=== PATIENT | female | born 1975 | race Caucasian/White ===

== ENCOUNTER 2019-10-10 10:25 | Day surgery (SDC) | payer OTHER, SELFPAY ==
[2019-10-04 11:55] LABS: ALBUMIN 3.2 g/dL (3.4-5.0); ANION GAP 13.5 (8-16); CARBON DIOXIDE 28.9 mmol/L (21-32); CREATININE 0.8 mg/dL (0.6-1.3); POTASSIUM 3.4 mmol/L (3.5-5.1); TOTAL BILIRUBIN 0.2 mg/dL (0.0-1.0)
[2019-10-04 11:58] LABS: BASOPHILS # (AUTO) 0.1 K/uL (0.00-0.22); BASOPHILS % (AUTO) 0.6 % (0.0-2.0); EOSINOPHILS # (AUTO) 0.2 K/uL (0-0.4); EOSINOPHILS % (AUTO) 2.6 % (0.0-4.0); HEMATOCRIT 40.1 % (36-48); LYMPHOCYTES # (AUTO) 2.1 K/uL (2.5-16.5); MEAN CORPUSCULAR HEMOGLOBIN 27 pg (27-31); MEAN CORPUSCULAR HGB CONC 32 g/dL (33-37); MEAN CORPUSCULAR VOLUME 83.2 fL (80-94); MONOCYTES # (AUTO) 0.5 K/uL (0.8-1.0); MONOCYTES % (AUTO) 5.3 % (1.7-9.3); NEUTROPHILS # (AUTO) 6.7 K/uL (1.8-7.7); NEUTROPHILS % (AUTO) 69.5 % (42.2-75.2); PLATELET COUNT (AUTO) 293 K/uL (140-450); RED BLOOD CELL COUNT(AUTO) 4.82 MIL/uL (4.20-5.40); RED CELL DISTRIBUTION WIDTH 14.7 % (11.6-13.7); WHITE BLOOD COUNT (AUTO) 9.7 K/uL (4.8-10.8)
[~2019-10-10] VITALS: Ht 162.6 cm; Wt 131.5 kg
[2019-10-10] MEDS ORDERED: NACL 0.9% 1,000 ML IV SCH (11:58)
[2019-10-10] MEDS ORDERED: BLOOD GLUCOSE MONITORING 1 DEV DEV FS SCH (12:00)
[2019-10-10] MEDS ORDERED: MEPERIDINE 25 MG/ML SYR IVP PRN (12:00)
[2019-10-10] MEDS ORDERED: ONDANSETRON 4 MG/2 ML VIAL IVP PRN (12:00)
[2019-10-10] MEDS ORDERED: SUCCINYLCHOLINE CHLORIDE 200 MG/10 ML VIAL IVP ONE (12:31)
[2019-10-10] MEDS ORDERED: PROPOFOL 200 MG/20 ML VIAL IV ONE (12:31)
[2019-10-10] MEDS ORDERED: DEXAMETHASONE 4 MG/ML VIAL ONE (12:31)
[2019-10-10] MEDS ORDERED: SUGAMMADEX SODIUM 200 MG/2 ML VIAL IV ONE (12:31)
[2019-10-10] MEDS ORDERED: ONDANSETRON 4 MG/2 ML VIAL ONE (12:31)
[2019-10-10] MEDS ORDERED: DESFLURANE 240 ML BTL INH ONE (12:31)
[2019-10-10] MEDS ORDERED: ROCURONIUM 50 MG/5 ML VIAL IV ONE (12:31)
[2019-10-10] MEDS: HYDROmorphone 1 MG/ML AMP IVP PRN ×2 (14:00→14:10)
[2019-10-10] MEDS ORDERED: HYDROmorphone PFS 2 MG/ML SYR ONE (22:01)
== END 2019-10-10 15:40 | disposition home or self-care (01) ==
LOC: MDS 10:25 → MMU 10:30 → MDS 15:40
PROVIDERS: ATTEND Obstetrics & Gynecology
DX: N92.0 Excessive and frequent menstruation with regular cycle (principal); Z11.59 Encounter for screening for other viral diseases
CPT/HCPCS: 36415; 58563; 80053; 81025; 84702; 85025; J0330; J1100; J1170; J2405; J2704; J3490; J7030; U0003